=== PATIENT | female | born 1995 | race African-American/Black ===

== ENCOUNTER 2020-09-21 10:55 | Inpatient (IN) | payer MEDICAID ==
[~2020-09-21] VITALS: Ht 162.6 cm; Wt 92.5 kg
[2020-09-21 11:27] LABS: HEMATOCRIT. 34.7 % (36.0-48.0); HEMOGLOBIN. 11.7 g/dL (12.0-16.0); MEAN CORPUSCULAR HEMOGLOBIN 28.9 pg (28.0-32.0); MEAN CORPUSCULAR VOLUME 86.1 fL (81.0-99.0); MEAN PLATELET VOLUME 8.3 fl (7.4-10.4); PLATELET 232 x1000/uL (130-400); RED BLOOD CELL COUNT 4.04 mill/uL (4.2-5.4); RED CELL DISTRIBUTION WIDTH 14.1 % (11.6-14.6)
[2020-09-21 11:28] LABS: CLARITY URINE CLOUDY (CLEAR); COLOR URINE DARK YELLOW (YELLOW); KETONES URINE 4+ (NEGATIVE); LEUKOCYTE ESTERASE URINE 3+ (NEGATIVE); NITRITE URINE POSITIVE (NEGATIVE); OCCULT BLOOD URINE 3+ (NEGATIVE); PROTEIN URINE 3+ (NEGATIVE)
[2020-09-21] MEDS ORDERED: DEXT 5%/LACTATED RINGERS 1,000 ML IV SCH (11:30)
[2020-09-21] MEDS ORDERED: ONDANSETRON HCL 4MG/2ML INJ IV PRN (11:30)
[2020-09-21 11:34] LABS: CHLORIDE 103 mEq/L (98-107)
[2020-09-21 12:01] LABS: PLATELET ESTIMATE NORMAL
[2020-09-21] MEDS ORDERED: CEFAZOLIN 2,000 MG in DEXT 5% WATER 100 ML IV STA (12:31)
[2020-09-21] MEDS ORDERED: CEFAZOLIN 2,000 MG in DEXT 5% WATER 100 ML IV SCH (13:00)
[2020-09-21] MEDS ORDERED: ACETAMINOPHEN 325MG TABLET PO PRN (15:00)
[2020-09-21] MEDS: GENTAMICIN 120MG PREMIX 100 ML IV SCH (17:00)
[2020-09-21] MEDS ORDERED: GENTAMICIN SULFATE 160 MG in SODIUM CHLORIDE 0.9% 100 ML IV NR (17:00)
[2020-09-21 17:20] LABS: HEMATOCRIT. 32.4 % (36.0-48.0); MEAN CORPUSCULAR HEMOGLOBIN 29.5 pg (28.0-32.0); MEAN CORPUSCULAR VOLUME 86.6 fL (81.0-99.0); MEAN PLATELET VOLUME 8.2 fl (7.4-10.4); PLATELET 214 x1000/uL (130-400); RED BLOOD CELL COUNT 3.74 mill/uL (4.2-5.4)
[2020-09-21 17:45] LABS: PLATELET ESTIMATE NORMAL
[2020-09-21] MEDS: LACTATED RINGERS 1,000 ML IV SCH (20:50)
[2020-09-21] MEDS: CEFAZOLIN 1000MG PREMIX 50 ML IV SCH (20:51)
[2020-09-21] MEDS ORDERED: ACETAMINOPHEN 500MG TABLET PO NR (21:45)
[2020-09-22] MEDS ORDERED: BUTORPHANOL TARTRATE 2 MG/ML VIAL IV PRN (01:15)
[2020-09-22] MEDS: LACTATED RINGERS 1,000 ML IV SCH ×2 (05:28→13:41)
[2020-09-22] MEDS ORDERED: ACETAMINOPHEN 325MG TABLET PO PRN (05:30)
[2020-09-22] MEDS: DOCUSATE SODIUM 100MG CAPSULE PO SCH ×2 (05:51→13:50)
[2020-09-22] MEDS: CEFAZOLIN 1000MG PREMIX 50 ML IV SCH ×2 (05:52→13:50)
[2020-09-22] MEDS ORDERED: LACTATED RINGERS 1,000 ML IV SCH (10:15)
[2020-09-22] MEDS ORDERED: MAGNESIUM/ALUMINUM HYDROXIDE/SIMETHICONE 30ML UDC PO PRN ×2 (10:15→14:45)
[2020-09-22] MEDS: HYDROMORPHONE HCL/PF 2MG/ML CPJ IV PRN ×2 (10:32→16:26)
[2020-09-22] MEDS ORDERED: METRONIDAZOLE IV NR (13:00)
[2020-09-22] MEDS ORDERED: POTASSIUM CHLORIDE 20MEQ TABLET SR PO SCH (15:00)
[2020-09-22 16:26] VITALS: BP 104/59
[2020-09-22] MEDS: GENTAMICIN 120MG PREMIX 100 ML IV SCH (16:56)
== END 2020-09-22 18:30 | disposition home or self-care (01) | DRG 566 ==
LOC: OBSVTOIN 10:55 → 8 EST LDRP 10:55 → 8 EST A/PP 09-22 13:04
PROVIDERS: ADMIT Obstetrics & Gynecology; ATTEND Obstetrics & Gynecology
DX: O23.02 Infections of kidney in pregnancy, second trimester (principal); E87.1 Hypo-osmolality and hyponatremia; O98.312 Other infections with a predominantly sexual mode of transmission complicating pregnancy, second trimester; A59.9 Trichomoniasis, unspecified; O21.2 Late vomiting of pregnancy; Z3A.26 26 weeks gestation of pregnancy; Z80.3 Family history of malignant neoplasm of breast; Z83.3 Family history of diabetes mellitus
CPT/HCPCS: 36415; 80048; 81003; 85025; 99281; G0378; J0595; J0690; J1170; J1580; J2405; J3490; J7050; J7060; J7120; J7121

== ENCOUNTER 2021-07-30 08:37 | Inpatient (IN) | payer MEDICAID, OTHER ==
[~2021-07-30] VITALS: Ht 162.6 cm; Wt 91.0 kg
[2021-07-30 10:26] LABS: HEMOGLOBIN. 12.2 g/dL (12.0-16.0); MEAN CORPUSCULAR HEMOGLOBIN 25.8 pg (28.0-32.0); MEAN CORPUSCULAR VOLUME 78.3 fL (81.0-99.0); MEAN PLATELET VOLUME 7.9 fl (7.4-10.4); PLATELET 491 x1000/uL (130-400); RED BLOOD CELL COUNT 4.73 mill/uL (4.2-5.4)
[2021-07-30 10:28] LABS: CHLORIDE 103 mEq/L (98-107)
[2021-07-30 10:42] LABS: HCG SCREEN NEGATIVE
[2021-07-30] MEDS ORDERED: ONDANSETRON HCL 4MG/2ML INJ IV SCH (10:52)
[2021-07-30] MEDS ORDERED: SODIUM CHLORIDE 0.9% 1,000 ML IV ONE (11:00)
[2021-07-30 11:20] LABS: INR 1.1; PROTHROMBIN TIME 11.7 sec (9.6-11.0)
[2021-07-30 11:42] LABS: PLATELET ESTIMATE INCREASED
[2021-07-30] MEDS ORDERED: KETOROLAC 30MG/ML VIAL IV NR (13:30)
[2021-07-30] MEDS ORDERED: PIPERACILLIN/TAZ 3.375G PREMIX 50 ML IV NR (13:30)
[2021-07-30] MEDS ORDERED: MORPHINE SULFATE 2 MG/ML CPJ (NOT FOR IM USE) IV SCH (14:45)
[2021-07-30] MEDS: HYDROCODONE/ACETAMINOPHEN 10/325MG TABLET PO PRN (19:58)
[2021-07-30] MEDS ORDERED: NALOXONE HCL 0.4MG/ML VIAL IV PRN (20:00)
[2021-07-31] MEDS: HYDROCODONE/ACETAMINOPHEN 10/325MG TABLET PO PRN (00:39)
[2021-07-31 07:30] VITALS: BP 114/62
[2021-07-31] MEDS ORDERED: ACETAMINOPHEN 325MG TABLET PO PRN (08:15)
[2021-07-31] MEDS ORDERED: ONDANSETRON HCL 4MG/2ML INJ IV PRN (08:15)
[2021-07-31] MEDS ORDERED: POTASSIUM CHLORIDE 20MEQ TABLET SR PO SCH (08:15)
[2021-07-31] MEDS ORDERED: PIPERACILLIN/TAZOBACTAM 3.375 G in DEXTROSE 5% WATER 50 ML IV SCH (10:00)
== END 2021-07-31 08:54 | disposition left against medical advice (07) ==
LOC: ER 08:37 → MICUSO 14:36 → EDBEDREQ 14:45 → EDBEDREQSVC 15:23 → CANRESERV 15:23 → ENRESERV 15:23
PROVIDERS: ADMIT Internal Medicine; ATTEND Internal Medicine
DX: K80.70 Calculus of gallbladder and bile duct without cholecystitis without obstruction (principal); E66.9 Obesity, unspecified; E87.6 Hypokalemia; Z53.29 Procedure and treatment not carried out because of patient's decision for other reasons
CPT/HCPCS: 36415; 76705; 80053; 80307; 84703; 85025; 99285; J1885; J2270; J2405; J2543; J7030; J7060

== ENCOUNTER 2022-10-12 07:56 | Inpatient (IN) | payer MEDICAID, OTHER ==
[~2022-10-12] VITALS: Ht 162.6 cm; Wt 81.6 kg
[2022-10-12] MEDS ORDERED: ACETAMINOPHEN 325MG TABLET PO STA (08:01)
[2022-10-12 08:02] VITALS: O2SAT 100
[2022-10-12 08:32] LABS: BASOPHILS % 0.3 % (0.0-2.0); HEMOGLOBIN. 12.1 g/dL (12.0-16.0); LYMPHOCYTES % 13.7 % (20.0-50.0); MEAN CORPUSCULAR HEMOGLOBIN 28.5 pg (28.0-32.0); MEAN CORPUSCULAR VOLUME 85.2 fL (81.0-99.0); MEAN PLATELET VOLUME 8.1 fl (7.4-10.4); MONOCYTES % 3.9 % (2.0-8.0); NEUTROPHILS % 82.1 % (40.0-76.0); PLATELET 364 x1000/uL (130-400); RED BLOOD CELL COUNT 4.23 mill/uL (4.2-5.4); RED CELL DISTRIBUTION WIDTH 14.1 % (11.6-14.6)
[2022-10-12 08:40] LABS: CHLORIDE 108 mEq/L (98-107)
[2022-10-12 08:44] LABS: INR 1.1; PROTHROMBIN TIME 11.5 sec (9.6-11.0)
[2022-10-12 08:56] LABS: CLARITY URINE CLEAR (CLEAR); COLOR URINE YELLOW (YELLOW); KETONES URINE 4+ (NEGATIVE); LEUKOCYTE ESTERASE URINE 2+ (NEGATIVE); NITRITE URINE NEGATIVE (NEGATIVE); OCCULT BLOOD URINE 1+ (NEGATIVE); PH URINE 6.5 (4.5-8.0); PROTEIN URINE NEGATIVE (NEGATIVE); SPECIFIC GRAVITY URINE 1.023 (1.005-1.030); UROBILINOGEN URINE 0.2 E.U./dL (0.2-1.0)
[2022-10-12 09:01] LABS: HCG SCREEN NEGATIVE
[2022-10-12] MEDS ORDERED: CEFTRIAXONE 1GM PREMIX 50 ML IV ONE (09:30)
[2022-10-12] MEDS ORDERED: MORPHINE SULFATE 4 MG/ML CPJ (NOT FOR IM USE) IV ONE ×2 (09:30→12:00)
[2022-10-12] MEDS ORDERED: CEFTRIAXONE 1GM PREMIX 50 ML IV SCH (12:00)
[2022-10-12] MEDS ORDERED: ACETAMINOPHEN 325MG TABLET PO PRN (12:00)
[2022-10-12] MEDS ORDERED: ONDANSETRON HCL 4MG/2ML INJ IV PRN (12:00)
[2022-10-12] MEDS ORDERED: CLONIDINE 0.1MG TABLET PO PRN (12:00)
[2022-10-12] MEDS ORDERED: MAGNESIUM/ALUMINUM HYDROXIDE/SIMETHICONE 30ML UDC PO PRN (12:00)
[2022-10-12] MEDS ORDERED: HYDROCODONE/ACETAMINOPHEN 5/325MG TABLET PO PRN (12:00)
[2022-10-12] MEDS ORDERED: ENOXAPARIN 40MG/0.4ML SYR SUBCUT SCH (12:00)
[2022-10-12 12:11] LABS: *AMPHETAMINES SCREEN URINE NEGATIVE (NEGATIVE); *BARBITURATES SCREEN URINE NEGATIVE (NEGATIVE); *BENZODIAZEPINES SCREEN URINE NEGATIVE (NEGATIVE); *COCAINE SCREEN URINE NEGATIVE (NEGATIVE); METHADONE URINE SCREEN NEGATIVE (NEGATIVE); OPIATES URINE SCREEN NEGATIVE (NEGATIVE); PHENCYCLIDINE URINE SCREEN NEGATIVE (NEGATIVE)
[2022-10-12 12:15] LABS: CANNABINOID URINE SCREEN PRESUMTIVE POSITIVE (NEGATIVE)
[2022-10-12 14:43] VITALS: BP 106/54; PULSE 46; RESP 17; TEMP 97.9
[2022-10-12 16:00] VITALS: BP 106/54; PULSE 44; RESP 14; TEMP 97.9
[2022-10-13] MEDS ORDERED: CEFTRIAXONE 1,000 MG in DEXTROSE 5% WATER 50 ML IV SCH (10:00)
== END 2022-10-12 17:15 | disposition left against medical advice (07) | DRG 463 ==
LOC: ER 07:56 → 6EST 11:24 → EDBEDREQ 11:30 → EDBEDREQTM 11:30 → CMPBEDREQ 13:04
PROVIDERS: ADMIT Internal Medicine; ATTEND Internal Medicine
DX: N39.0 Urinary tract infection, site not specified (principal); Z53.29 Procedure and treatment not carried out because of patient's decision for other reasons; Z90.49 Acquired absence of other specified parts of digestive tract
CPT/HCPCS: 36415; 74176; 80053; 80305; 81003; 84703; 85025; 93970; 99285; J0696; J1650; J2270